=== PATIENT | male | born 1975 | race African-American/Black ===

== ENCOUNTER 2019-04-25 01:06 | Emergency (ER) | payer SELFPAY ==
[2019-04-25] MEDS ORDERED: Ondansetron ODT 4 MG TAB ONE (01:31)
== END 2019-04-25 01:35 | disposition home or self-care (01) ==
LOC: BURERS 01:06
DX: R11.2 Nausea with vomiting, unspecified (principal); R10.30 Lower abdominal pain, unspecified; M54.5 Low back pain; R53.83 Other fatigue; I10 Essential (primary) hypertension; E78.5 Hyperlipidemia, unspecified; F17.210 Nicotine dependence, cigarettes, uncomplicated
CPT/HCPCS: 99283; Q0162

== ENCOUNTER 2019-09-17 15:39 | Emergency (ER) | payer OTHER, SELFPAY ==
[2019-09-17] MEDS ORDERED: Ibuprofen 200 MG TAB ONE (15:55)
== END 2019-09-17 15:55 | disposition home or self-care (01) ==
LOC: BURERS 15:39
DX: S39.012A Strain of muscle, fascia and tendon of lower back, initial encounter (principal); E78.5 Hyperlipidemia, unspecified; I10 Essential (primary) hypertension; F17.210 Nicotine dependence, cigarettes, uncomplicated; Z71.6 Tobacco abuse counseling; V59.9XXA Occupant (driver) (passenger) of pick-up truck or van injured in unspecified traffic accident, initial encounter
CPT/HCPCS: 99406

== ENCOUNTER 2020-08-31 10:59 | Emergency (ER) | payer SELFPAY | END 2020-08-31 11:31 | disposition home or self-care (01) | LOC: BURERS 10:59 | DX: I10 Essential (primary) hypertension (principal); E78.5 Hyperlipidemia, unspecified; F17.210 Nicotine dependence, cigarettes, uncomplicated | CPT/HCPCS: 99281 ==

== ENCOUNTER 2021-12-18 13:21 | Emergency (ER) | payer SELFPAY ==
[2021-12-18] MEDS ORDERED: Tetracaine 0.5% PF 4 ML BOT ONE (13:38)
[2021-12-18] MEDS ORDERED: Erythromycin Base 0.5% Ophth Oint 3.5 gm Tube ONE (14:14)
== END 2021-12-18 14:07 | disposition home or self-care (01) ==
LOC: BURERS 13:21
DX: H10.89 Other conjunctivitis (principal); I10 Essential (primary) hypertension; E78.5 Hyperlipidemia, unspecified; F17.210 Nicotine dependence, cigarettes, uncomplicated
CPT/HCPCS: 99283

== ENCOUNTER 2022-02-16 16:25 | Emergency (ER) | payer SELFPAY ==
[2022-02-16] MEDS ORDERED: Ibuprofen 200 MG TAB ONE (17:14)
[2022-02-16] MEDS ORDERED: HYDROcodone/Acetaminophen 10/325 mg Tablet ONE (18:04)
== END 2022-02-16 18:45 | disposition home or self-care (01) ==
LOC: BURERS 16:25
DX: S70.02XA Contusion of left hip, initial encounter (principal); S39.012A Strain of muscle, fascia and tendon of lower back, initial encounter; E78.5 Hyperlipidemia, unspecified; I10 Essential (primary) hypertension; F17.210 Nicotine dependence, cigarettes, uncomplicated; W23.0XXA Caught, crushed, jammed, or pinched between moving objects, initial encounter
CPT/HCPCS: 72100; 72170